=== PATIENT | female | born 1965 | race Two or more races ===

== ENCOUNTER 2023-05-07 06:50 | Emergency (ER) | payer OTHER ==
[2023-05-07 06:58] VITALS: TEMP 97.9; BMI 33.3
[2023-05-07] MEDS ORDERED: PANTOPRAZOLE SODIUM 40 MG VIAL IVPUSH ONE (07:26)
[2023-05-07] MEDS ORDERED: FAMOTIDINE 20 MG/50 ML IVPB 20 MG/50 ML MG IVPB ONE ×2 (08:15→08:41)
[2023-05-07] MEDS ORDERED: MAG HYDROX/AL HYDROX/SIMETH 30 ML UNIT-DOSE CUP PO ONE (08:15)
[2023-05-07] MEDS ORDERED: PANTOPRAZOLE 40 MG TABLET PO ONE ×2 (08:15→08:40)
[2023-05-07] MEDS ORDERED: ACETAMINOPHEN 1000 MG/100 ML BAG IVPB ONE (08:15)
[2023-05-07 08:25] LABS: INR 1.08 (0.83-1.09); PROTHROMBIN TIME (PATIENT) 12.5 SEC (9.7-13.0)
[2023-05-07 08:28] LABS: ACTIVATED PTT 31.5 SECONDS (25.2-36.5)
[2023-05-07 08:37] LABS: POTASSIUM 4.1 mmol/L (3.5-5.1)
[2023-05-07 08:38] LABS: BASO % 1.3 % (0-2.0); EOS % 1.2 % (0-4.5); HEMATOCRIT 43.3 % (32.4-45.2); HEMOGLOBIN 14.4 GM/dL (10.7-15.3); LYMPH % 32.6 % (8-40); MCH 28.9 pg (25.7-33.7); MCHC 33.2 g/dl (32.0-36.0); MEAN CELL VOLUME 86.8 fl (80-96); MEAN PLT VOLUME 8.9 fl (7.5-11.1); NEUT % 56.9 % (42.8-82.8); PLATELET COUNT 316 10^3/uL (134-434); RBC 4.98 M/mm3 (3.60-5.2); RDW 13.2 % (11.6-15.6); WHITE BLOOD COUNT 6.8 K/mm3 (4.0-10.0)
[2023-05-07 08:39] LABS: CALCIUM 9.2 mg/dL (8.5-10.1)
[2023-05-07 08:40] LABS: ALBUMIN 3.9 g/dl (3.4-5.0); BLOOD UREA NITROGEN 15.1 mg/dL (7-18)
[2023-05-07] MEDS ORDERED: ACETAMINOPHEN INJECTION 100 ML IVPB ONE (08:40)
[2023-05-07] MEDS ORDERED: MAG HYDROX/AL HYDROX/SIMETH 30 ML UNIT-DOSE CUP ONE (08:41)
[2023-05-07 08:43] LABS: CREATININE 0.7 mg/dL (0.55-1.3)
[2023-05-07 08:44] LABS: BILIRUBIN,TOTAL 0.5 mg/dL (0.2-1); TOT PROT 7.9 g/dl (6.4-8.2)
[2023-05-07 09:03] VITALS: BP 121/66; PULSE 55; RESP 15
== END 2023-05-07 10:49 | disposition home or self-care (01) ==
LOC: JER 06:50
PROC: 3E033GC Introduction of Other Therapeutic Substance into Peripheral Vein, Percutaneous Approach (ICD-10-PCS; principal; 2023-05-07)
PROC: 3E033NZ Introduction of Analgesics, Hypnotics, Sedatives into Peripheral Vein, Percutaneous Approach (ICD-10-PCS; 2023-05-07)
DX: R07.89 Other chest pain (principal); M25.561 Pain in right knee
CPT/HCPCS: 36415; 71045-TC-FY; 80053; 84484; 85025; 85610; 85730; 93005; 93010; 99285-25